=== PATIENT | male | born 1975 | race Asian ===

== ENCOUNTER 2018-07-02 15:28 | Emergency (ER) | payer BC ==
[~2018-07-02] VITALS: Ht 175.3 cm; Wt 77.3 kg
[2018-07-02] MEDS ORDERED: ACET-2247 PO (15:45)
[2018-07-02] MEDS ORDERED: INDOMETHACIN 25 MG CAPSULE PO ONE (16:45)
[2018-07-02 17:05] VITALS: BP 143/86
== END 2018-07-02 17:21 | disposition home or self-care (01) ==
LOC: EMS 15:31
DX: M10.9 Gout, unspecified (principal)